=== PATIENT | male | born 1930 | race Hispanic/Latino ===

== ENCOUNTER 2019-02-05 11:19 | Emergency (ER) | payer BC, MEDICARE ==
--- NOTE | 2019-02-05 11:49 | Emergency Department Report ---
ED Altered Mental Status HPI - General Chief Complaint: Altered Mental Status Stated Complaint: AMS Time Seen by Provider: 02/05/19 11:30 Source: EMS, old records reviewed Mode of arrival: Stretcher Limitations: Altered Mental Status - History of Present Illness Initial Comments: 88-year-old male sent from assisted living with altered mental status. Pt apparently woke up acting different. As per EMS patient is able to speak fluently and walk independently as reported by long-term staff. Patient apparently was noted to have difficulty speaking, walking, and did not drink his Ensure this morning. Assisted living staff reported that patient is only on Ativan but he presents with a more extensive med list does suggest the patient has a history of hypertension, CHF, and dementia. Patient earlier today and oriented to self only. He has stuttering speech and a temor. EMS was informed that tremor is chronic. EMS report A. fib on a monitor and patient is on Xarelto. Glucose in route 82. Pt denies pain. PMD: Jamar Zavaleta (as per med list) patient also presents with a midline central access (unknown reason) at 12:05pm pt's daughter called the ed He is in route to the hospital. She was able to provide further history. Patient was released from [facility] on January 25. He was being treated for UTI and sepsis. He was discharged with a midline/PICC line and daily IV antibiotics. He requires 3 more days of antibiotics and is scheduled to complete treatment on the . She reports that he has had generalized weakness since discharged from the hospital. 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 He also requires a walker to assist with ambulation. at 1:25 pm spoke to daughter at bedside. She said she received report that pt was sent to the ed because he was sob (not ams). They noticed pt was sob while lying supine in bed. 2:54pm Daughter states pt has been off xarelto x 7 weeks. hx of PE. also states pt c/o right ear pain 3:23pm daughter called the assisted living who confirmed that pt is still taking xarelto, it was never discontinued 3:52pm pt's daughter called and verified that pt is on rocephin 2 grams daily. Pt missed his dose today because he was in the hospital. she is requesting a dose in the ed. - Related Data Home Medications Medication Instructions Recorded Confirmed Last Taken Donepezil [Aricept] 10 mg PO QDAY 02/05/19 02/05/19 Unknown Furosemide [Lasix TAB] 40 mg PO QDAY 02/05/19 02/05/19 1 Day Ago ~02/04/19 LORazepam [Ativan] 0.5 mg PO QAM 02/05/19 02/05/19 Unknown Memantine HCl [Memantine 5-10mg 10 mg PO BID 02/05/19 02/05/19 1 Day Ago Titration Nicholas] ~02/04/19 Metoprolol Xl [Metoprolol 25 mg PO QDAY 02/05/19 02/05/19 1 Day Ago SUCCINATE ER TAB] ~02/04/19 Potassium Chloride [K-Dur] 20 meq PO QDAY 02/05/19 02/05/19 1 Day Ago ~02/04/19 Rivaroxaban [Xarelto] 15 mg PO QDAY 02/05/19 02/05/19 1 Day Ago ~02/04/19 Sertraline [Zoloft] 50 mg PO QDAY 02/05/19 02/05/19 Unknown dilTIAZem [CarDIZEM] 120 mg PO Q6HR 02/05/19 02/05/19 Unknown Allergies Allergy/AdvReac Type Severity Reaction Status Date / Time Penicillins Allergy Unknown Verified 02/05/19 18:11 Sulfa (Sulfonamide Allergy Unknown Verified 02/05/19 18:11 Antibiotics) ED Review of Systems ROS: Stated complaint: AMS Other details as noted in HPI Comment: All other systems reviewed and negative ED Past Medical Hx - Past Medical History Previous Medical History?: Yes Hx Hypertension: Yes Hx Dementia: Yes - Medications Home Medications: Home Medications Medication Instructions Recorded Confirmed Last Taken Type Donepezil [Aricept] 10 mg PO QDAY 02/05/19 02/05/19 Unknown History Furosemide [Lasix TAB] 40 mg PO QDAY 02/05/19 02/05/19 1 Day Ago History ~02/04/19 LORazepam [Ativan] 0.5 mg PO QAM 02/05/19 02/05/19 Unknown History Memantine HCl [Memantine 5-10mg 10 mg PO BID 02/05/19 02/05/19 1 Day Ago History Titration Nicholas] ~02/04/19 Metoprolol Xl [Metoprolol 25 mg PO QDAY 02/05/19 02/05/19 1 Day Ago History SUCCINATE ER TAB] ~02/04/19 Potassium Chloride [K-Dur] 20 meq PO QDAY 02/05/19 02/05/19 1 Day Ago History ~02/04/19 Rivaroxaban [Xarelto] 15 mg PO QDAY 02/05/19 02/05/19 1 Day Ago History ~02/04/19 Sertraline [Zoloft] 50 mg PO QDAY 02/05/19 02/05/19 Unknown History dilTIAZem [CarDIZEM] 120 mg PO Q6HR 02/05/19 02/05/19 Unknown History ED Physical Exam - General Limitations: Altered Mental Status - Other Other exam information: General: No acute distress Eyes: Normal appearance, pupils equal reactive to light, extraocular movements i ntact ENT: Normal oropharynx, dry mucous membranes, right ear tm without erythema and good light reflex Neck: Normal appearance, no C-spine tenderness, no meningismus Chest: Clear to auscultation bilaterally, no wheezes, rales, or crackles Cardiovascular: Irregular rhythm Abdomen: Soft, nondistended, nontender, no rebound or guarding, normal bowel sounds Back: Normal inspection, nontender Extremity: Normal inspection, no deformity, full range of motion. Right arm midline/Picc line Neuro: Alert and oriented 1,stuttering speech, equal hand machine scallop cutter and foot dorsiflexion Skin: No rash, warmth, or erythema ED Course Vital Signs 02/05/19 11:49 Temperature 97.4 F L Pulse Rate 70 Respiratory 18 Rate Blood Pressure 116/58 Blood Pressure 118/64 [Left] O2 Sat by Pulse 94 Oximetry - Reevaluation(s) Reevaluation #1: 02/05/19 15:24 abd shows mild hypoxia but not low enough to require po o2 no acid base disturbance - Consultations Consultation #1: 02/05/19 12:14 received call back from tele neuro. nonfocal on exam. will f/u ct. not a tpa candidate - ABG Interpretation Ph: 7.37 PCO2: 44 PO2: 65 Bicarbonate: 26 Interpretation: normal Additional Comments: on room air - Lab Data Result diagrams: 02/05/19 11:53 02/05/19 11:53 Lab Results 02/05/19 02/05/19 02/05/19 Range/Units 11:53 11:53 11:53 WBC 6.4 (4.5-11.0) K/mm3 RBC 4.80 (3.65-5.03) M/mm3 Hgb 14.3 (11.8-15.2) gm/dl Hct 43.2 (35.5-45.6) % MCV 90 (84-94) fl MCH 30 (28-32) pg MCHC 33 (32-34) % RDW 14.1 (13.2-15.2) % Plt Count 280 (140-440) K/mm3 Lymph % (Auto) 24.2 (13.4-35.0) % Laurens % (Auto) 10.5 H (0.0-7.3) % Eos % (Auto) 2.5 (0.0-4.3) % Baso % (Auto) 0.9 (0.0-1.8) % Lymph # 1.5 (1.2-5.4) K/mm3 Laurens # 0.7 (0.0-0.8) K/mm3 Eos # 0.2 (0.0-0.4) K/mm3 Baso # 0.1 (0.0-0.1) K/mm3 Seg Neutrophils % 61.9 (40.0-70.0) % Seg Neutrophils # 4.0 (1.8-7.7) K/mm3 PT 15.8 H (12.2-14.9) Sec. INR 1.29 H (0.87-1.13) APTT 30.6 (24.2-36.6) Sec. Thrombin Time 16.8 (15.1-19.6) Sec. POC ABG pH (7.35-7.45) POC ABG pCO2 (35-45) POC ABG pO2 (80-105) POC ABG HCO3 (22-26 mml/L) POC ABG Total CO2 (23-27mmol/L) POC ABG O2 Sat POC ABG Base Excess ((-2) - (+3)mmol/L) FiO2 % Sodium 139 (137-145) mmol/L Potassium 5.0 (3.6-5.0) mmol/L Chloride 101.1 (98-107) mmol/L Carbon Dioxide 28 (22-30) mmol/L Anion Gap 15 mmol/L BUN 15 (9-20) mg/dL Creatinine 1.1 (0.8-1.5) mg/dL Estimated GFR > 60 ml/min BUN/Creatinine Ratio 14 % Glucose 95 (75-100) mg/dL POC Glucose (70-105) Calcium 9.1 (8.4-10.2) mg/dL Magnesium 1.80 (1.7-2.3) mg/dL Total Bilirubin 0.50 (0.1-1.2) mg/dL AST 79 H (5-40) units/L ALT 73 H (7-56) units/L Alkaline Phosphatase 116 (35-129) units/L Troponin T < 0.010 (0.00-0.029) ng/mL Total Protein 7.4 (6.3-8.2) g/dL Albumin 3.6 L (3.9-5) g/dL Albumin/Globulin Ratio 0.9 % TSH (0.270-4.200) mlU/mL Free T4 (0.76-1.46) ng/dL Salicylates (2.8-20.0) mg/dL Acetaminophen (10.0-30.0) ug/mL Plasma/Serum Alcohol (0-0.07) % 02/05/19 02/05/19 02/05/19 Range/Units 11:53 11:53 11:53 WBC (4.5-11.0) K/mm3 RBC (3.65-5.03) M/mm3 Hgb (11.8-15.2) gm/dl Hct (35.5-45.6) % MCV (84-94) fl MCH (28-32) pg MCHC (32-34) % RDW (13.2-15.2) % Plt Count (140-440) K/mm3 Lymph % (Auto) (13.4-35.0) % Laurens % (Auto) (0.0-7.3) % Eos % (Auto) (0.0-4.3) % Baso % (Auto) (0.0-1.8) % Lymph # (1.2-5.4) K/mm3 Laurens # (0.0-0.8) K/mm3 Eos # (0.0-0.4) K/mm3 Baso # (0.0-0.1) K/mm3 Seg Neutrophils % (40.0-70.0) % Seg Neutrophils # (1.8-7.7) K/mm3 PT (12.2-14.9) Sec. INR (0.87-1.13) APTT (24.2-36.6) Sec. Thrombin Time (15.1-19.6) Sec. POC ABG pH (7.35-7.45) POC ABG pCO2 (35-45) POC ABG pO2 (80-105) POC ABG HCO3 (22-26 mml/L) POC ABG Total CO2 (23-27mmol/L) POC ABG O2 Sat POC ABG Base Excess ((-2) - (+3)mmol/L) FiO2 % Sodium (137-145) mmol/L Potassium (3.6-5.0) mmol/L Chloride (98-107) mmol/L Carbon Dioxide (22-30) mmol/L Anion Gap mmol/L BUN (9-20) mg/dL Creatinine (0.8-1.5) mg/dL Estimated GFR ml/min BUN/Creatinine Ratio % Glucose (75-100) mg/dL POC Glucose (70-105) Calcium (8.4-10.2) mg/dL Magnesium (1.7-2.3) mg/dL Total Bilirubin (0.1-1.2) mg/dL AST (5-40) units/L ALT (7-56) units/L Alkaline Phosphatase (35-129) units/L Troponin T (0.00-0.029) ng/mL Total Protein (6.3-8.2) g/dL Albumin (3.9-5) g/dL Albumin/Globulin Ratio % TSH 1.270 (0.270-4.200) mlU/mL Free T4 1.36 (0.76-1.46) ng/dL Salicylates < 0.3 L (2.8-20.0) mg/dL Acetaminophen < 5.0 L (10.0-30.0) ug/mL Plasma/Serum Alcohol (0-0.07) % 02/05/19 02/05/19 02/05/19 Range/Units 11:53 12:01 14:41 WBC (4.5-11.0) K/mm3 RBC (3.65-5.03) M/mm3 Hgb (11.8-15.2) gm/dl Hct (35.5-45.6) % MCV (84-94) fl MCH (28-32) pg MCHC (32-34) % RDW (13.2-15.2) % Plt Count (140-440) K/mm3 Lymph % (Auto) (13.4-35.0) % Laurens % (Auto) (0.0-7.3) % Eos % (Auto) (0.0-4.3) % Baso % (Auto) (0.0-1.8) % Lymph # (1.2-5.4) K/mm3 Laurens # (0.0-0.8) K/mm3 Eos # (0.0-0.4) K/mm3 Baso # (0.0-0.1) K/mm3 Seg Neutrophils % (40.0-70.0) % Seg Neutrophils # (1.8-7.7) K/mm3 PT (12.2-14.9) Sec. INR (0.87-1.13) APTT (24.2-36.6) Sec. Thrombin Time (15.1-19.6) Sec. POC ABG pH (7.35-7.45) POC ABG pCO2 (35-45) POC ABG pO2 (80-105) POC ABG HCO3 (22-26 mml/L) POC ABG Total CO2 (23-27mmol/L) POC ABG O2 Sat POC ABG Base Excess ((-2) - (+3)mmol/L) FiO2 % Sodium (137-145) mmol/L Potassium (3.6-5.0) mmol/L Chloride (98-107) mmol/L Carbon Dioxide (22-30) mmol/L Anion Gap mmol/L BUN (9-20) mg/dL Creatinine (0.8-1.5) mg/dL Estimated GFR ml/min BUN/Creatinine Ratio % Glucose (75-100) mg/dL POC Glucose 94 (70-105) Calcium (8.4-10.2) mg/dL Magnesium (1.7-2.3) mg/dL Total Bilirubin (0.1-1.2) mg/dL AST (5-40) units/L ALT (7-56) units/L Alkaline Phosphatase (35-129) units/L Troponin T < 0.010 (0.00-0.029) ng/mL Total Protein (6.3-8.2) g/dL Albumin (3.9-5) g/dL Albumin/Globulin Ratio % TSH (0.270-4.200) mlU/mL Free T4 (0.76-1.46) ng/dL Salicylates (2.8-20.0) mg/dL Acetaminophen (10.0-30.0) ug/mL Plasma/Serum Alcohol < 0.01 (0-0.07) % 02/05/19 02/05/19 Range/Units 15:24 16:52 WBC (4.5-11.0) K/mm3 RBC (3.65-5.03) M/mm3 Hgb (11.8-15.2) gm/dl Hct (35.5-45.6) % MCV (84-94) fl MCH (28-32) pg MCHC (32-34) % RDW (13.2-15.2) % Plt Count (140-440) K/mm3 Lymph % (Auto) (13.4-35.0) % Laurens % (Auto) (0.0-7.3) % Eos % (Auto) (0.0-4.3) % Baso % (Auto) (0.0-1.8) % Lymph # (1.2-5.4) K/mm3 Laurens # (0.0-0.8) K/mm3 Eos # (0.0-0.4) K/mm3 Baso # (0.0-0.1) K/mm3 Seg Neutrophils % (40.0-70.0) % Seg Neutrophils # (1.8-7.7) K/mm3 PT (12.2-14.9) Sec. INR (0.87-1.13) APTT (24.2-36.6) Sec. Thrombin Time (15.1-19.6) Sec. POC ABG pH 7.378 (7.35-7.45) POC ABG pCO2 44.7 (35-45) POC ABG pO2 65 L (80-105) POC ABG HCO3 26.3 (22-26 mml/L) POC ABG Total CO2 28 (23-27mmol/L) POC ABG O2 Sat 92 POC ABG Base Excess 1 ((-2) - (+3)mmol/L) FiO2 21 % Sodium (137-145) mmol/L Potassium (3.6-5.0) mmol/L Chloride (98-107) mmol/L Carbon Dioxide (22-30) mmol/L Anion Gap mmol/L BUN (9-20) mg/dL Creatinine (0.8-1.5) mg/dL Estimated GFR ml/min BUN/Creatinine Ratio % Glucose (75-100) mg/dL POC Glucose (70-105) Calcium (8.4-10.2) mg/dL Magnesium (1.7-2.3) mg/dL Total Bilirubin (0.1-1.2) mg/dL AST (5-40) units/L ALT (7-56) units/L Alkaline Phosphatase (35-129) units/L Troponin T < 0.010 (0.00-0.029) ng/mL Total Protein (6.3-8.2) g/dL Albumin (3.9-5) g/dL Albumin/Globulin Ratio % TSH (0.270-4.200) mlU/mL Free T4 (0.76-1.46) ng/dL Salicylates (2.8-20.0) mg/dL Acetaminophen (10.0-30.0) ug/mL Plasma/Serum Alcohol (0-0.07) % - EKG Data -: EKG Interpreted by Me (artifact) EKG shows normal: sinus rhythm, axis (qrs 3), QRS complexes (qrsd 90), ST-T waves (no stemi/t inv) - Radiology Data Radiology results: report reviewed CT HEAD WITHOUT CONTRAST INDICATION / CLINICAL INFORMATION: decreased mental status. No focal symptoms. According to Dr. Quiles of the emergency apartment this patient was declared a "code stroke" patient because of uncertain neurological presentation. TECHNIQUE: All CT scans at this location are performed using CT dose reduction for ALARA by means of automated exposure control. COMPARISON: None available. FINDINGS: HEMORRHAGE: No evidence of intracranial hemorrhage or extra-axial fluid collection. EXTRA-AXIAL SPACES: Cortical sulci and sylvian fissures are enlarged reflecting a degree of parenchymal volume loss which is within normal limits for the patient's age. Basilar cisterns have an unremarkable appearance. VENTRICULAR SYSTEM: The third and lateral ventricles are enlarged reflecting resonance of age related parenchymal volume loss. CEREBRAL PARENCHYMA: Periventricular and deep white matter lucency is observed. This is probably secondary to microvascular ischemic change. There is no indication of recent infarction. No areas of encephalomalacia are identified. MIDLINE SHIFT OR HERNIATION: There is no mass effect. CEREBELLUM / BRAINSTEM: Brainstem and cerebellum have an unremarkable appearance. INTRACRANIAL VESSELS:Calcified atherosclerotic plaque is present along the course of the cavernous segments of both internal carotid arteries. Similar findings are seen at the distal vertebral arteries. ORBITS: Status post bilateral cataract gregg dick. The orbits have an otherwise unremarkable appearance. SOFT TISSUES of HEAD: No significant abnormality. CALVARIUM: Evaluation of bone windows reveals no abnormalities. PARANASAL SINUSES / MASTOID AIR CELLS: Paranasal sinuses are free from inflammatory mucosal disease. Mastoid air cells are normally pneumatized. IMPRESSION: 1. Age-related atrophy and microvascular ischemic change. 2. No acute intracranial abnormality. - Medical Decision Making Patient at baseline as per family. ABG does not reveal any significant hypoxia or CO2 retention. ct head and neuro exam without acute findings CT angiogram chest negative for pulmonary embolism but does show some mild edema. IV Lasix provided. Patient to continue current Lasix prescription. Patient received his daily dose of Rocephin 2 g for UTI. No signs of sepsis or septic shock. Patient will be discharged back to long-term. pt has a f/u scheduled with pmd next week. copy of imaging studies provided to take to f/u - Differential Diagnosis encephalopathy, infection, CVA, ICH, Parkinson's, dementia Critical Care Time: No Critical care attestation.: If time is entered above; I have spent that time in minutes in the direct care of this critically ill patient, excluding procedure time. ED Disposition Clinical Impression: UTI (urinary tract infection), Mild congestive heart failure, Anticoagulant long-term use Disposition: OP ADMIT IP TO THIS HOSP Is pt being admited?: No Does the pt Need Aspirin: No Condition: Stable Instructions: Heart Failure (ED), Urinary Tract Infection in Men (ED) Additional Instructions: Continue your current medications as prescribed. Follow-up with your doctor or with a doctor/clinic provided. Return is symptoms worsen as indicated by the discharge instructions. Referrals: your, primary care doctor [Other] - 2-3 Days
[2019-02-05 11:59] LABS: Basophils # (Auto) 0.1 K/mm3 (0.0-0.1); Basophils % (Auto) 0.9 % (0.0-1.8); Eosinophils # (Auto) 0.2 K/mm3 (0.0-0.4); Eosinophils % (Auto) 2.5 % (0.0-4.3); Hematocrit 43.2 % (35.5-45.6); Hemoglobin 14.3 gm/dl (11.8-15.2); Lymphocytes # (Auto) 1.5 K/mm3 (1.2-5.4); Lymphocytes % (Auto) 24.2 % (13.4-35.0); Mean Corpuscular HGB Conc 33 % (32-34); Mean Corpuscular Volume 90 fl (84-94); Monocytes # (Auto) 0.7 K/mm3 (0.0-0.8); Monocytes % (Auto) 10.5 % (0.0-7.3); Platelet Count 280 K/mm3 (140-440); Red Cell Distribution Width 14.1 % (13.2-15.2)
[2019-02-05 12:12] LABS: INR 1.29 (0.87-1.13)
[2019-02-05 12:13] LABS: Partial Thromboplastin Time 30.6 Sec. (24.2-36.6)
[2019-02-05 12:14] LABS: Thrombin Time 16.8 Sec. (15.1-19.6)
[2019-02-05 12:15] LABS: Alanine Aminotransferase 73 units/L (7-56); Albumin 3.6 g/dL (3.9-5); BUN/Creatinine Ratio 14; Blood Urea Nitrogen 15 mg/dL (9-20); Calcium 9.1 mg/dL (8.4-10.2); Hemolysis Index 5
--- NOTE | 2019-02-05 12:18 | Emergency Department Report ---
ED Neuro Deficit HPI - General Chief Complaint: Altered Mental Status Stated Complaint: AMS Time Seen by Provider: 02/05/19 11:30 Source: EMS, old records reviewed Mode of arrival: Stretcher Limitations: Altered Mental Status - History of Present Illness Initial Comments: [facility] TeleNeurology Consult [facility] The patient was informed the neurology consult would happen via TeleHealth by way of interactive audio and visual telecommunications and consented to receiving care in this manner for acute stroke protocol. DATE: February 05 2019 Impression: AMS-pt with hx dementia PD abnormal movments today more confused then molly appears demented on exam. the patient's daughter says he has a chronic dystonia and the orofacial movements are not new. Suspect more toxic metabolic altered mental status rather than any sort of vascular event. Not a tpa candidate due to: Last known normal over 4.5 hours ago relatively nonfocal exam Symptoms (not) consistent with LVO therefore no role for neuro-intervention Differential Diagnosis: Toxic metabolic encephalopathy, medication effect, infection Comments: Last known normal last night sometime not clear Door time 11:19 [facility] contacted: 11:46 [facility] at bedside: 11:49 NIHSS assessment time: 11:50 Recommendations: -continue full anticoagulation if official read on ct head okay -toxic metabolic workup Inpatient neurology consultation Inpatient stroke evaluation as per Neurology/ Internal Medicine Discussed with ED MD Please call with questions --------- CC confusion History of Present Illness Patient is an 88-year-old man with a 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 Apparently this morning when he woke up he was acting differently more confused than normal. He's had an assisted living facility. He also has some hyperkinetic movements that EMS were told was baseline. His daughter called and said that he's been treated for urinary tract infection with recent hospitalization for sepsis syndrome and does have a couple doses of IV antibiotics left. He's had some generalized weakness since then and was just more confused this morning. Diagnostic: CT head wo contrast limited by streak and motion artifact but no obvious large territory stroke or ICH offical read pending Exam: 1a- LOC: Keenly responsive - =0 1b- LOC questions: Answers neither correct=2 1c- LOC commands- Performs both tasks correctly- 0 2- Gaze: Normal; no gaze paresis or gaze deviation - 0 3- Visual Mcdonald: normal, no Visual field deficit - 0 4- Facial movements: no facial palsy - 0 5- Upper limb motor - no drift -0 6- Lower limb motor - no drift - 0 7- Limb Coordination: absent ataxia - 0 8- Sensory : no sensory loss - 0 9- Language - No aphasia - 0 10- Speech -=1 speech is slurred however he has near continuous oral facial tardive movements 11- Neglect / Extinction - none found -0 NIHSS score 3 Medical Decision Making: - Extensive number of diagnosis or management options are considered above. - Extensive amount of complex data reviewed. - High risk of complication and/or morbidity or mortality are associated with differential diagnostic considerations above. - There may be Uncertain outcome and increased probability of prolonged functional impairment or high probability of severe prolonged functional impairment associated with some of these differential diagnosis. Medical Data Reviewed: 1.Data reviewed include clinical labs, radiology, Medical Tests; 2.Tests results discussed w/performing or interpreting physician; 3.Obtaining/reviewing old medical records; 4.Obtaining case history from another source; 5.Independent review of image, tracing or specimen. Patient was informed the Neurology Consult would happen via telehealth (remote video) and consented to receiving care in this manner. - Related Data Allergies/Adverse Reactions: Allergies Allergy/AdvReac Type Severity Reaction Status Date / Time Penicillins Allergy Unknown Verified 02/05/19 12:12 Sulfa (Sulfonamide Allergy Unknown Verified 02/05/19 12:13 Antibiotics) ED Review of Systems ROS: Stated complaint: AMS Other details as noted in HPI ED Past Medical Hx - Past Medical History Previous Medical History?: Yes Hx Hypertension: Yes Hx Dementia: Yes - Social History Smoking Status: Unknown if ever smoked ED Neuro Physical Exam - General Limitations: Altered Mental Status Suspected Stroke: No ED Course Vital Signs 02/05/19 11:49 Temperature 97.4 F L Pulse Rate 70 Respiratory 18 Rate Blood Pressure 116/58 Blood Pressure 118/64 [Left] O2 Sat by Pulse 94 Oximetry - Lab Data Result diagrams: 02/05/19 11:53 02/05/19 11:53 Lab Results 02/05/19 02/05/19 02/05/19 Range/Units 11:53 11:53 11:53 WBC 6.4 (4.5-11.0) K/mm3 RBC 4.80 (3.65-5.03) M/mm3 Hgb 14.3 (11.8-15.2) gm/dl Hct 43.2 (35.5-45.6) % MCV 90 (84-94) fl MCH 30 (28-32) pg MCHC 33 (32-34) % RDW 14.1 (13.2-15.2) % Plt Count 280 (140-440) K/mm3 Lymph % (Auto) 24.2 (13.4-35.0) % [place] % (Auto) 10.5 H (0.0-7.3) % Eos % (Auto) 2.5 (0.0-4.3) % Baso % (Auto) 0.9 (0.0-1.8) % Lymph # 1.5 (1.2-5.4) K/mm3 [place] # 0.7 (0.0-0.8) K/mm3 Eos # 0.2 (0.0-0.4) K/mm3 Baso # 0.1 (0.0-0.1) K/mm3 Seg Neutrophils % 61.9 (40.0-70.0) % Seg Neutrophils # 4.0 (1.8-7.7) K/mm3 PT 15.8 H (12.2-14.9) Sec. INR 1.29 H (0.87-1.13) APTT 30.6 (24.2-36.6) Sec. Thrombin Time 16.8 (15.1-19.6) Sec. Sodium 139 (137-145) mmol/L Potassium 5.0 (3.6-5.0) mmol/L Chloride 101.1 (98-107) mmol/L Carbon Dioxide 28 (22-30) mmol/L Anion Gap 15 mmol/L BUN 15 (9-20) mg/dL Creatinine 1.1 (0.8-1.5) mg/dL Estimated GFR > 60 ml/min BUN/Creatinine Ratio 14 % Glucose 95 (75-100) mg/dL POC Glucose (70-105) Calcium 9.1 (8.4-10.2) mg/dL Magnesium 1.80 (1.7-2.3) mg/dL Total Bilirubin 0.50 (0.1-1.2) mg/dL AST 79 H (5-40) units/L ALT 73 H (7-56) units/L Alkaline Phosphatase 116 (35-129) units/L Troponin T < 0.010 (0.00-0.029) ng/mL Total Protein 7.4 (6.3-8.2) g/dL Albumin 3.6 L (3.9-5) g/dL Albumin/Globulin Ratio 0.9 % TSH (0.270-4.200) mlU/mL Free T4 (0.76-1.46) ng/dL Salicylates (2.8-20.0) mg/dL Acetaminophen (10.0-30.0) ug/mL Plasma/Serum Alcohol (0-0.07) % 02/05/19 02/05/19 02/05/19 Range/Units 11:53 11:53 11:53 WBC (4.5-11.0) K/mm3 RBC (3.65-5.03) M/mm3 Hgb (11.8-15.2) gm/dl Hct (35.5-45.6) % MCV (84-94) fl MCH (28-32) pg MCHC (32-34) % RDW (13.2-15.2) % Plt Count (140-440) K/mm3 Lymph % (Auto) (13.4-35.0) % [place] % (Auto) (0.0-7.3) % Eos % (Auto) (0.0-4.3) % Baso % (Auto) (0.0-1.8) % Lymph # (1.2-5.4) K/mm3 [place] # (0.0-0.8) K/mm3 Eos # (0.0-0.4) K/mm3 Baso # (0.0-0.1) K/mm3 Seg Neutrophils % (40.0-70.0) % Seg Neutrophils # (1.8-7.7) K/mm3 PT (12.2-14.9) Sec. INR (0.87-1.13) APTT (24.2-36.6) Sec. Thrombin Time (15.1-19.6) Sec. Sodium (137-145) mmol/L Potassium (3.6-5.0) mmol/L Chloride (98-107) mmol/L Carbon Dioxide (22-30) mmol/L Anion Gap mmol/L BUN (9-20) mg/dL Creatinine (0.8-1.5) mg/dL Estimated GFR ml/min BUN/Creatinine Ratio % Glucose (75-100) mg/dL POC Glucose (70-105) Calcium (8.4-10.2) mg/dL Magnesium (1.7-2.3) mg/dL Total Bilirubin (0.1-1.2) mg/dL AST (5-40) units/L ALT (7-56) units/L Alkaline Phosphatase (35-129) units/L Troponin T (0.00-0.029) ng/mL Total Protein (6.3-8.2) g/dL Albumin (3.9-5) g/dL Albumin/Globulin Ratio % TSH 1.270 (0.270-4.200) mlU/mL Free T4 1.36 (0.76-1.46) ng/dL Salicylates < 0.3 L (2.8-20.0) mg/dL Acetaminophen < 5.0 L (10.0-30.0) ug/mL Plasma/Serum Alcohol (0-0.07) % 02/05/19 02/05/19 Range/Units 11:53 12:01 WBC (4.5-11.0) K/mm3 RBC (3.65-5.03) M/mm3 Hgb (11.8-15.2) gm/dl Hct (35.5-45.6) % MCV (84-94) fl MCH (28-32) pg MCHC (32-34) % RDW (13.2-15.2) % Plt Count (140-440) K/mm3 Lymph % (Auto) (13.4-35.0) % [place] % (Auto) (0.0-7.3) % Eos % (Auto) (0.0-4.3) % Baso % (Auto) (0.0-1.8) % Lymph # (1.2-5.4) K/mm3 [place] # (0.0-0.8) K/mm3 Eos # (0.0-0.4) K/mm3 Baso # (0.0-0.1) K/mm3 Seg Neutrophils % (40.0-70.0) % Seg Neutrophils # (1.8-7.7) K/mm3 PT (12.2-14.9) Sec. INR (0.87-1.13) APTT (24.2-36.6) Sec. Thrombin Time (15.1-19.6) Sec. Sodium (137-145) mmol/L Potassium (3.6-5.0) mmol/L Chloride (98-107) mmol/L Carbon Dioxide (22-30) mmol/L Anion Gap mmol/L BUN (9-20) mg/dL Creatinine (0.8-1.5) mg/dL Estimated GFR ml/min BUN/Creatinine Ratio % Glucose (75-100) mg/dL POC Glucose 94 (70-105) Calcium (8.4-10.2) mg/dL Magnesium (1.7-2.3) mg/dL Total Bilirubin (0.1-1.2) mg/dL AST (5-40) units/L ALT (7-56) units/L Alkaline Phosphatase (35-129) units/L Troponin T (0.00-0.029) ng/mL Total Protein (6.3-8.2) g/dL Albumin (3.9-5) g/dL Albumin/Globulin Ratio % TSH (0.270-4.200) mlU/mL Free T4 (0.76-1.46) ng/dL Salicylates (2.8-20.0) mg/dL Acetaminophen (10.0-30.0) ug/mL Plasma/Serum Alcohol < 0.01 (0-0.07) % Critical care attestation.: If time is entered above; I have spent that time in minutes in the direct care of this critically ill patient, excluding procedure time. ED Disposition Clinical Impression: Altered mental status, unspecified Disposition: OP ADMIT IP TO THIS HOSP Is pt being admited?: Yes Condition: Stable Referrals: KACEY RAND MD [Primary Care Provider] - 3-5 Days
[2019-02-05 12:29] LABS: Free T4 (Free Thyroxine) 1.36 ng/dL (0.76-1.46)
--- NOTE | 2019-02-05 13:01 | Cat Scan Report ---
CT HEAD WITHOUT CONTRAST INDICATION / CLINICAL INFORMATION: decreased mental status. No focal symptoms. According to Dr. Quiles of the emergency apartment this pat ient was declared a "code stroke" patient because of uncertain neurological presentation. TECHNIQUE: All CT scans at this location are performed using CT dose reduction for ALARA by means of automated e xposure control. COMPARISON: None available. FINDINGS: HEMORRHAGE: No evidence of intracranial hemorrhage or extra-axial fluid collection. EXTRA-AXIAL SPACES: Cortical sulci and sylvian fissures are enlarged reflecting a degree of parenchym al volume loss which is within normal limits for the patient's age. Basilar cisterns have an unremark able appearance. VENTRICULAR SYSTEM: The third and lateral ventricles are enlarged reflecting resonance of age related parenchymal volume loss. CEREBRAL PARENCHYMA: Periventricular and deep white matter lucency is observed. This is probably seco ndary to microvascular ischemic change. There is no indication of recent infarction. No areas of ence phalomalacia are identified. MIDLINE SHIFT OR HERNIATION: There is no mass effect. CEREBELLUM / BRAINSTEM: Brainstem and cerebellum have an unremarkable appearance. INTRACRANIAL VESSELS:Calcified atherosclerotic plaque is present along the course of the cavernous se gments of both internal carotid arteries. Similar findings are seen at the distal vertebral arteries. ORBITS: Status post bilateral cataract surgery. The orbits have an otherwise unremarkable appearance. SOFT TISSUES of HEAD: No significant abnormality. CALVARIUM: Evaluation of bone windows reveals no abnormalities. PARANASAL SINUSES / MASTOID AIR CELLS: Paranasal sinuses are free from inflammatory mucosal disease. Mastoid air cells are normally pneumatized. IMPRESSION: 1. Age-related atrophy and microvascular ischemic change. 2. No acute intracranial abnormality. Code stroke patient: Report called to Dr. Quiles at about 1154 Central daylight time Signer Name: Isrrael Hanks MD Signed: 02/05/2019 12:57 PM Workstation Name: [email or web address]
--- NOTE | 2019-02-05 13:51 | XRay Report ---
CHEST 1 VIEW INDICATION: sob COMPARISON: None FINDINGS: Support devices: None Heart: Normal Lungs/Pleura: Slight elevation and possibly eventration of the right hemidiaphragm. Linear density in the right base is thought to be atelectasis. No convincing evidence of acute disease. IMPRESSION: 1. No acute abnormalities. Signer Name: Zaid Angulo MD Signed: 02/05/2019 1:46 PM Workstation Name: [id number]
--- NOTE | 2019-02-05 16:14 | Cat Scan Report ---
CT angio chest INDICATION: sob, hx of pulm embolism. TECHNIQUE: All CT scans at this location are performed using CT dose reduction for ALARA by means of automated e xposure control. Precontrast localizer images were obtained, followed by axial and 3-dimensional imaging, performed at an independent workstation by the staff cytotechnologist after IV bolus contrast injection COMPARISON: None available. FINDINGS: Mediastinum, evelyn and axillae are negative. Upper abdomen appears negative. Diffuse groundglass patte rn throughout both lungs suggests mild interstitial pulmonary edema. No pleural fluid or focal parenc hymal disease. No evidence of pulmonary embolus. IMPRESSION: 1. Probable minimal interstitial pulmonary edema. 2. Negative for pulmonary embolus. Signer Name: Zaid Angulo MD Signed: 02/05/2019 4:10 PM Workstation Name: [id number]
[2019-02-05] MEDS ORDERED: LASIX IV ONE (16:38)
[2019-02-05] MEDS ORDERED: ROCEPHIN/NS 2 GM/100 ML 2 GM/100 ML BAG IV ONE (18:08)
[2019-02-05 20:14] VITALS: BP 103/65
== END 2019-02-05 20:13 | disposition admitted as inpatient to this hospital (09) ==
LOC: ED 11:19
DX: I11.0 Hypertensive heart disease with heart failure (principal); I50.9 Heart failure, unspecified; R41.82 Altered mental status, unspecified; N39.0 Urinary tract infection, site not specified; F03.90 Unspecified dementia, unspecified severity, without behavioral disturbance, psychotic disturbance, mood disturbance, and anxiety; Z79.899 Other long term (current) drug therapy; Z88.0 Allergy status to penicillin; Z88.2 Allergy status to sulfonamides
CPT/HCPCS: 36415; 70450; 71045; 71275; 80053; 82803; 82962; 83735; 84439; 84443; 84484; 85025; 85610; 85670; 85730; 93005; 93010; 96365; 96375; 99285; J0696; J1940; Q9967; 80320; G0480